=== PATIENT | female | born 1995 | race Caucasian/White ===

== ENCOUNTER → 2016-05-11 | Outpatient (CLI) | payer OTHER ==
--- NOTE | 2016-05-11 08:57 | MR ---
PRE AND POSTCONTRAST ENHANCED MRI OF THE BRAIN: CLINICAL HISTORY: Headaches CONTRAST: 15 ML Multihance Multiplanar and multispin-echo imaging of the brain was performed both before and after the administr ation of contrast. The ventricles, basal cisterns and sulci overlying the cerebral convexities are within normal limits. There is no evidence for midline shift or mass effect. Acute intracranial hemorrhage or extra-axial collection is not evident. There are no abnormal areas of increased or decreased signal intensity within the brain parenchyma. Following contrast administration, there is no evidence for pathologic enhancement or enhancing mass. The paranasal demonstrate mild mucosal thickening maxillary sinuses. mastoid air cells are well-aera melissa. IMPRESSION: Unremarkable pre and postcontrast enhanced MRI of the brain. Chronic maxillary sinusitis.
== END | disposition home or self-care (01) ==
LOC: RADMRIMAIN 06:55
PROVIDERS: ATTEND Psychiatry & Neurology Neurology
DX: J32.0 Chronic maxillary sinusitis (principal); C71.0 Malignant neoplasm of cerebrum, except lobes and ventricles; G44.321 Chronic post-traumatic headache, intractable
CPT/HCPCS: 70553; A9577

== ENCOUNTER → 2016-07-12 | Outpatient (CLI) | payer OTHER | LOC: LABWHC1 10:27 | PROVIDERS: ATTEND Internal Medicine Cardiovascular Disease | DX: R07.9 Chest pain, unspecified (principal) | CPT/HCPCS: 36415; 85379 ==

== ENCOUNTER → 2017-11-02 | Outpatient (CLI) | payer MEDICAID ==
--- NOTE | 2017-11-02 07:46 | USB ---
Reason for exam: clinical finding. Indicated problem(s): lump or thickening in the right breast. Physical Findings: Nurse Summary: bilateral nodular tissue, all soft, movable (nurse ts). US Breast RT Right complete breast ultrasound includes all four quadrants, the retroareolar region and axilla. Finding demonstrates no cystic or solid lesion seen. Patient reports that the palpable area is no longer apparent. Dense tissues are noted. These results were verbally communicated with the patient and result sheet given to the patient on 11/02/17. ASSESSMENT: Negative, BI-RAD 1 RECOMMENDATION: Routine screening mammogram of both breasts at age 39. Manage on a clinical basis with regard to any recurrent palpable area.
== END | disposition home or self-care (01) ==
LOC: RADUSWWP 06:49
PROVIDERS: ATTEND Family Medicine
DX: N63.10 Unspecified lump in the right breast, unspecified quadrant (principal)

== ENCOUNTER → 2018-01-31 | Outpatient (CLI) | payer BC ==
[2018-01-31 09:09] LABS: Cholesterol 235 mg/dL (<200); HDL Cholesterol 50 mg/dL (40-60); LDL Cholesterol,Calculated 163 mg/dL (0-99); Triglycerides 112 mg/dL (<150)
== END | disposition home or self-care (01) ==
LOC: LABWHC1 07:06
PROVIDERS: ATTEND Nurse Practitioner Family
DX: E78.89 Other lipoprotein metabolism disorders (principal)
CPT/HCPCS: 36415; 80061

== ENCOUNTER → 2018-05-04 | Outpatient (CLI) | payer BC ==
[2018-05-04 16:09] LABS: LDL Cholesterol,Calculated 115.4 mg/dL (0.0-131.0); VLDL Calculation 31.6 mg/dL (5.00-40.00)
== END | disposition home or self-care (01) ==
LOC: LABWHC1 07:13
PROVIDERS: ATTEND Nurse Practitioner Family
DX: E78.5 Hyperlipidemia, unspecified (principal)
CPT/HCPCS: 36415; 80061

== ENCOUNTER → 2018-07-03 | Outpatient (CLI) | payer BC ==
--- NOTE | 2018-07-10 15:22 | HM ---
HOLTER MONITOR REPORT Patient was monitored for 24 hours. Baseline rhythm is a sinus mechanism with normal conduction. The average rate 82 beats per minute, minimum 48, maximum 133 beats per minute. Ventricular ectopic activity was not present. Supraventricular ectopic activity was present in the form of rare single PACs. Episode of sinus arrhythmia was noted. Symptoms of pain around the heart and slight sharp pain and headache did not correlate with any dysrhythmia. CONCLUSION: 1. Sinus mechanism, baseline rhythm. 2. Rare supraventricular ectopic activity. 3. No ventricular ectopic activity. 4. Symptoms did not correlate with any dysrhythmia. MMODL / IJN: [id number] /
== END | disposition home or self-care (01) ==
LOC: RADECHMAIN 11:41
PROVIDERS: ATTEND Family Medicine
DX: R00.2 Palpitations (principal)
CPT/HCPCS: 93225; 93226

== ENCOUNTER → 2018-09-10 | Outpatient (CLI) | payer BC ==
[2018-09-10 07:23] LABS: HCT 43.4 % (34.0-46.0); HGB 14.2 gm/dL (11.4-16.0); MCH 28.5 pg (25.0-35.0); MCHC 32.7 g/dL (31.0-37.0); MCV 87.4 fL (80.0-100.0); Mean Platelet Volume 6.1; Platelet Count 374 k/uL (150-450); RBC 4.97 m/uL (3.80-5.40); RDW 12.2 % (11.5-15.5); WBC 10.2 k/uL (3.8-10.6)
[2018-09-10 10:51] LABS: Albumin 4.3 g/dL (3.80-4.90); Albumin/Globulin Ratio 2.05 (1.60-3.17); Anion Gap 2.5 mmol/L (4.00-12.00); Calcium 9.2 mg/dL (8.7-10.3); Carbon Dioxide 29.5 mmol/L (21.6-31.8); Globulin 2.1 g/dL (1.6-3.3); LDL Cholesterol,Calculated 164.2 mg/dL (0.0-131.0); Potassium 4.6 mmol/L (3.5-5.5); Total Bilirubin 0.4 mg/dL (0.2-1.2); Total Protein 6.4 g/dL (6.2-8.2); VLDL Calculation 18.8 mg/dL (5.00-40.00)
== END | disposition home or self-care (01) ==
LOC: LABWHC1 07:01
PROVIDERS: ATTEND Family Medicine
DX: Z00.00 Encounter for general adult medical examination without abnormal findings (principal)
CPT/HCPCS: 36415; 80053; 80061; 84443; 85027

== ENCOUNTER → 2018-12-13 | Outpatient (CLI) | payer BC ==
[2018-12-13 15:59] LABS: African American GFR (CKD) 103.7 (60.0-200.0); Albumin 4.5 g/dL (3.80-4.90); Albumin/Globulin Ratio 2.65 (1.60-3.17); Anion Gap 7.3 mmol/L (4.00-12.00); BUN/Creat Ratio 14.44 Ratio (12.00-20.00); Calcium 9.2 mg/dL (8.7-10.3); Carbon Dioxide 28.7 mmol/L (21.6-31.8); Globulin 1.7 g/dL (1.6-3.3); LDL Cholesterol,Calculated 103.4 mg/dL (0.0-131.0); Potassium 4.6 mmol/L (3.5-5.5); Total Bilirubin 0.5 mg/dL (0.2-1.2); Total Protein 6.2 g/dL (6.2-8.2); VLDL Calculation 24.6 mg/dL (5.00-40.00)
== END | disposition home or self-care (01) ==
LOC: LABWHC1 07:40
PROVIDERS: ATTEND Family Medicine
DX: E78.49 Other hyperlipidemia (principal)
CPT/HCPCS: 36415; 80053; 80061; 82550; 83090; 86141

== ENCOUNTER → 2019-01-04 | Outpatient (CLI) | payer BC ==
--- NOTE | 2019-01-07 08:40 | CT ---
EXAMINATION TYPE: CT soft tissue neck wo con DATE OF EXAM: 01/04/2019 COMPARISON: None HISTORY: 23-year-old female Neck pain. No known injury. TECHNIQUE: Contiguous axial scanning of the soft tissues of the neck without IV contrast. Coronal and sagittal reconstructions performed. CT DLP: 482.6 mGycm Automated exposure control for dose reduction was used. FINDINGS: Slight leftward nasal septal deviation. A small portion of the intracranial space is seen along the p osterior cranial fossa. Mild mucosal thickening floor of the left maxillary sinus. Mastoid air cells appear clear. Allowing for noncontrast technique which limits assessment of the mucosal space, the nasopharynx and oropharynx appear clear. The epiglottis and prevertebral soft tissues appear satisfactory. The glottic and subglottic structures as well as the tracheal column and visualized upper lungs appea r clear. Lobulated and heterogeneous appearance to the thyroid gland can be correlated with physical exam, thy roid function tests, and thyroid ultrasound. The bilateral submandibular glands appear satisfactory. Mild atrophy of the parotid glands. Borderline sized parotid space lymph nodes measure up to 5 mm, probably reactive/post inflammatory. Some prominent but nonenlarged upper cervical lymph nodes measure up to 1.3 cm short axis, refer to s agittal image 60 and coronal image 34. Additional scattered nonenlarged lymph nodes are present on riley th sides of the neck. Visualized upper thorax shows no gross abnormality. Bones: No osseous destructive process. IMPRESSION: 1. A FEW BORDERLINE SIZED PAROTID SPACE LYMPH NODES MEASURING UP TO 5 MM AND SOME PROMINENT BUT NOT E NLARGED UPPER CERVICAL LYMPH NODES MEASURING UP TO 1.3 CM SHORT AXIS. LIKELY REACTIVE/POST INFLAMMATO RY. 2. HETEROGENEOUS AND LOBULATED APPEARANCE TO THE THYROID GLAND CAN BE CORRELATED WITH PHYSICAL EXAM, THYROID FUNCTION TESTS, AND THYROID ULTRASOUND. POSSIBLE GOITER. 3. THE LACK OF IV CONTRAST LIMITS ASSESSMENT OF THE MUCOSAL SPACE. NO SPECIFIC ABNORMALITY IS SEEN. 4. MILD ATROPHY OF THE BILATERAL PAROTID GLANDS.
== END | disposition home or self-care (01) ==
LOC: RADCTMAIN 14:24
PROVIDERS: ATTEND Family Medicine
DX: K11.0 Atrophy of salivary gland (principal); R93.89 Abnormal findings on diagnostic imaging of other specified body structures; G89.29 Other chronic pain
CPT/HCPCS: 70490

== ENCOUNTER → 2019-05-20 | Outpatient (CLI) | payer BC ==
[2019-05-20 13:50] LABS: HCT 40.8 % (34.0-46.0); HGB 13.6 gm/dL (11.4-16.0); MCH 29.4 pg (25.0-35.0); MCHC 33.4 g/dL (31.0-37.0); Platelet Count 361 k/uL (150-450); RBC 4.64 m/uL (3.80-5.40); WBC 7.7 k/uL (3.8-10.6)
[2019-05-20 21:44] LABS: African American GFR (CKD) 118.8 (60.0-200.0); Albumin 4.2 g/dL (3.80-4.90); Albumin/Globulin Ratio 2.47 (1.60-3.17); Anion Gap 4.1 mmol/L (4.00-12.00); Calcium 8.8 mg/dL (8.7-10.3); Carbon Dioxide 26.9 mmol/L (21.6-31.8); Chol/HDL Ratio 3.8; Globulin 1.7 g/dL (1.6-3.3); LDL Cholesterol,Calculated 155.6 mg/dL (0.0-131.0); Magnesium 1.8 mg/dL (1.5-2.4); Non-African American GFR(CKD) 102.5 (60.0-200.0); Potassium 4.6 mmol/L (3.5-5.5); Total Bilirubin 0.4 mg/dL (0.3-1.2); Total Protein 5.9 g/dL (6.2-8.2); VLDL Calculation 23.4 mg/dL (5.00-40.00)
[2019-05-20 21:53] LABS: T4, Free (Free Thyroxine) 1.1 ng/dL (0.80-1.80)
== END | disposition home or self-care (01) ==
LOC: LABWHC1 12:50
PROVIDERS: ATTEND Family Medicine
DX: E66.9 Obesity, unspecified (principal); R00.2 Palpitations; E04.9 Nontoxic goiter, unspecified
CPT/HCPCS: 36415; 80053; 80061; 83735; 84439; 84443; 84481; 85027

== ENCOUNTER → 2019-12-04 | Outpatient (CLI) | payer BC ==
--- NOTE | 2019-12-05 10:40 | NM ---
EXAMINATION TYPE: NM thyroid image w uptake DATE OF EXAM: 12/05/2019 COMPARISON: CT neck January 04, 2019 HISTORY: Family history of thyroid cancer with thyroid nodule per order. Patient's symptoms include h eat and cold intolerance, access widening, diminished appetite with weight gain along with irritabili ty, insomnia, fatigue, difficulty swallowing and palpitations all per patient. TECHNIQUE: Thyroid iodine uptake is calculated and images performed after the oral administration of 292 uCi 1-123 Capsule. FINDINGS: There is normal distribution of activity throughout the gland. The 4 hour iodine uptake is calculated at 15% (normal range 8-14%). The 24-hour iodine uptake is calculated at 34% (normal range 15-35%). IMPRESSION: Normal thyroid scan. Calculated uptake upper limits of normal to mildly increased dependi ng on reference standard. Correlate for underlying hyperthyroidism.
== END | disposition home or self-care (01) ==
LOC: RADNMMAIN 09:34
PROVIDERS: ATTEND Family Medicine
DX: E04.1 Nontoxic single thyroid nodule (principal); Z80.8 Family history of malignant neoplasm of other organs or systems
CPT/HCPCS: 78014; A9516

== ENCOUNTER → 2021-07-29 | Outpatient (CLI) | payer BC, SELFPAY ==
[2021-07-29 18:31] LABS: ALT 22 U/L (8-44); AST 14 U/L (13-35); African American GFR (CKD) 101.6 (60.0-200.0); Albumin 4.4 g/dL (3.8-4.9); Albumin/Globulin Ratio 1.83 (1.60-3.17); Alkaline Phosphatase 90 U/L (41-126); BUN/Creat Ratio 14.22 Ratio (12.00-20.00); Blood Urea Nitrogen 12.8 mg/dL (9.0-27.0); Calcium 9.2 mg/dL (8.7-10.3); Chloride 104 mmol/L (96-109); Globulin 2.4 g/dL (1.6-3.3); Glucose 86 mg/dL (70-110); Non-African American GFR(CKD) 87.6 (60.0-200.0); Potassium 4.3 mmol/L (3.5-5.5); Sodium 139 mmol/L (135-145); Total Bilirubin <0.15 mg/dL (0.30-1.20); Total Protein 6.8 g/dL (6.2-8.2)
== END | disposition home or self-care (01) ==
LOC: LABWHC1 13:45
PROVIDERS: ATTEND Internal Medicine Endocrinology, Diabetes & Metabolism
DX: C73 Malignant neoplasm of thyroid gland (principal); E04.1 Nontoxic single thyroid nodule
CPT/HCPCS: 36415; 80053; 84439; 84443; 84481